=== PATIENT | female | born 1960 | race Two or more races ===

== ENCOUNTER 2017-10-29 06:34 | Day surgery (SDC) | payer OTHER ==
[~2017-10-29 06:34] MED LIST: GABAPENTIN800 MG; KLONOPIN2 MG/TAB; NORVASC5 MG; PAXIL20 MG; PERCOCET 5/3251 TAB; RESTORIL30 MG
[2017-10-29] MEDS ORDERED: ALEVE220 M1 PO (13:59)
[2017-10-29] MEDS ORDERED: CEFADROXIL500 MG PO (13:59)
[2017-10-29] MEDS ORDERED: PERCOCET 5-3251 EACH PO (13:59)
== END 2017-10-29 18:30 | disposition home or self-care (01) ==
LOC: CIR.AMB 06:34
DX: M87.052 Idiopathic aseptic necrosis of left femur (principal)

== ENCOUNTER 2023-05-05 11:33 | Emergency (ER) | payer OTHER ==
[~2023-05-05] VITALS: Ht 162.6 cm; Wt 72.6 kg
[~2023-05-05 11:33] MED LIST changes: +ALEVE220 M1 PO; +CEFADROXIL500 MG PO; +PERCOCET 5-3251 EACH PO
== END 2023-05-05 17:23 | disposition home or self-care (01) ==
LOC: ER
PROVIDERS: General Practice
DX: R10.9 Unspecified abdominal pain (principal); R19.7 Diarrhea, unspecified; I10 Essential (primary) hypertension; Z87.19 Personal history of other diseases of the digestive system
CPT/HCPCS: 36415; 93005; 96365; 99284; J2765; J3490

== ENCOUNTER 2023-05-30 02:36 | Emergency (ER) | payer OTHER ==
[~2023-05-30] VITALS: Ht 167.6 cm; Wt 72.6 kg
[2023-05-30 06:32] LABS: URINE APPEARANCE Clear; URINE BILIRRUBIN Negative (NEGATIVE); URINE BLOOD Trace; URINE COLOR Yellow; URINE GLUCOSE Negative (NEGATIVE); URINE LEUKOCYTE Moderate; URINE NITRATE Positive; URINE PROTEIN Trace (NEGATIVE); URINE UROBILINOGEN 0.2 E.U./dl
[2023-05-30 06:42] LABS: URINE BACTERIA 971.1 uL (0.0-1933); URINE EPITHELIAL CELLS 27.2 uL (0.0-38.8); URINE RBC 17.6 uL (0.0-20.8); URINE WBC 352.4 uL (0.0-23.2)
[2023-05-30 07:48] LABS: URINE CRYSTALS NEGATIVE /HPF
[2023-05-30] MEDS ORDERED: PYRIDIUM DS200 MG PO (08:12)
[2023-05-30] MEDS ORDERED: CIPRO500 MG PO (08:12)
== END 2023-05-30 08:54 ==
LOC: ER
PROVIDERS: General Practice
DX: N39.0 Urinary tract infection, site not specified (principal); I10 Essential (primary) hypertension
CPT/HCPCS: 96372; 99284; J1885

== ENCOUNTER 2023-09-17 06:10 | Day surgery (SDC) | payer OTHER ==
[2023-09-12 11:51] LABS: PH,URINE 5.5 (5.0-8.0); URINE APPEARANCE Clear; URINE BILIRRUBIN Negative (NEGATIVE); URINE BLOOD Negative; URINE COLOR Yellow; URINE GLUCOSE Negative (NEGATIVE); URINE LEUKOCYTE Small; URINE NITRATE Negative; URINE PROTEIN Negative (NEGATIVE)
[2023-09-12 11:54] LABS: HEMATOCRIT 36.8 % (36.0-45.00); HEMOGLOBIN 12.4 g/dL (12.0-15.00); MEAN CELL VOLUME 88.6 fL (80.00-100.00); MEAN CORPUSCULAR HEMOGLOBIN 29.8 pg (27.00-32.0); MEAN CORPUSCULAR HGB CONC 33.6 g/dl (32.0-36.0); PLATELET COUNT 218 K/uL (150-450); RED BLOOD COUNT 4.16 M/uL (4.00-6.00); RED CELL DISTRIBUTION WIDTH 14.9 % (11.5-14.5)
[2023-09-12 11:56] LABS: URINE BACTERIA 83.1 uL (0.0-1933); URINE EPITHELIAL CELLS 20.2 uL (0.0-38.8); URINE RBC 2.2 uL (0.0-20.8); URINE WBC 7.4 uL (0.0-23.2)
[2023-09-12 12:14] LABS: URINE MUCUS MODERATE
[2023-09-12 12:19] LABS: INR 1.03; PARTIAL THROMBOPLASTIN TIME 24.5 SECONDS (22.0-34.0); PROTHROMBIN TIME 10.8 SECONDS (9.0-11.5)
[2023-09-12 12:23] LABS: ALBUMIN 3.9 gm/dL (3.4-5.0); BILIRUBIN TOTAL 0.79 mg/dL (0.3-1.2); CALCIUM 8.9 mg/dL (8.5-10.1); CREATININE SERUM 0.82 mg/dL (0.55-1.02); GFR 70.87; GLOBULINA 3.7 G/DL (2.4-3.5); POTASSIUM 3.83 mEq/L (3.5-5.1); TOTAL PROTEIN 7.6 gm/dL (6.4-8.2)
[~2023-09-17] VITALS: Ht 170.2 cm; Wt 68.0 kg
[~2023-09-17 06:10] MED LIST changes: +AMILORIDE HCL5 MG PO; +CIPRO500 MG PO; +COZAAR50 MG PO; +DICLOFENAC35 MG PO; +HUMIRA40 MG/0.2; +NIFEDIPINE20 MG PO; +PYRIDIUM DS200 MG PO; +TRAZODONE HCL150 MG PO; +ZANAFLEX2 M1 PO
[2023-09-17] MEDS ORDERED: CEFADROXIL500 MG PO (10:11)
[2023-09-17] MEDS ORDERED: ASA325 M1 PO (10:11)
[2023-09-17] MEDS ORDERED: PERCOCET 5-3251 EACH PO (10:11)
== END 2023-09-17 14:15 | disposition home or self-care (01) ==
LOC: CIR.AMB 06:10
PROVIDERS: ATTEND Orthopaedic Surgery
DX: T84.84XA Pain due to internal orthopedic prosthetic devices, implants and grafts, initial encounter (principal); M70.62 Trochanteric bursitis, left hip; M81.8 Other osteoporosis without current pathological fracture